=== PATIENT | female | born 1995 | race Caucasian/White ===

== ENCOUNTER 2020-01-13 13:38 | Emergency (ER) | payer BC, MEDICAID, SELFPAY ==
--- NOTE | ~2020-01-13 | XR_ITS ---
EXAMINATION: XR foot RT min 3V DATE: 01/13/2020 14:01 INDICATION: Right foot pain. Injury. TECHNIQUE: 4 views of right foot were obtained. COMPARISON: None. FINDINGS: Bone alignment is normal. No fracture. Joint spaces are well maintained. IMPRESSION: 1. Normal right foot. Reviewed, dictated and finalized at location A. IMPRESSION: 1. Normal right foot.
[2020-01-13 13:50] VITALS: BP 114/77; PULSE 68; RESP 18; TEMP 36.3; O2SAT 100
--- NOTE | 2020-01-13 14:05 | ED.LOWEXIN ---
HPI - Extremity Injury (Lower) General Chief Complaint: Extremity Injury, Lower Stated Complaint: right foot pain Time Seen by Provider: 01/13/20 14:05 Source: patient and RN notes reviewed Mode of arrival: ambulatory Limitations: no limitations History of Present Illness HPI Narrative: 24-year-old female presents with concern for right foot injury. Reports approximately 2 hours ago she hit the lateral edge of her right foot on a kitchen chair. Reports pain, bruising, swelling beneath the fifth digit. Denies any intervention. MD complaint: foot injury Injury: Right: foot Related Data Home Medications Medication Instructions Recorded Confirmed alprazolam 0.25 mg PO DAILY 01/13/20 01/13/20 Allergies Allergy/AdvReac Type Severity Reaction Status Date / Time No Known Allergies Allergy Verified 01/13/20 14:06 Review of Systems Review of Systems: Narrative: CONSTITUTIONAL: Denies malaise, chills, sweats, or fever. SKIN: Bruising, swelling to the right foot MUSCULOSKELETAL: Reports right foot pain. NEUROLOGIC: Denies numbness, weakness All systems reviewed & are unremarkable except as noted in HPI and below PMFSH Social History Social History Gender identity (if verbalized by the patient): Female Comments At time of signature, agree with nursing past medical, surgical, social and family history. There is no relevant family history pertinent to the presenting complaint Exam Narrative: Exam Narrative: GENERAL: Well-appearing, well-nourished, and in no acute distress. HEAD: Normocephalic, atraumatic. EYES: PERRLA, conjunctivae clear NECK: Supple. CHEST: Speaks in full sentences. No respiratory distress. HEART: Regular rate and rhythm. Normal and equal peripheral pulses. EXTREMITIES: Right foot, digits of right foot have has normal strength and sensation, normal range of motion. Mild edema and ecchymosis to the lateral edge of the right foot beneath the fifth digit. 5/5 strength with ankle and digit flexion and extension. Normal sensation with sensitivity to light touch and pain. No open wounds, no skin tenting, no devitalized tissue or atrophy, no trophic changes, no obvious deformity, alignment normal, no point tenderness, nearby joints and structures intact. Distal pulses palpable and equal bilaterally, skin warm, dry, pink. Capillary refill less than 3 seconds. SKIN: Warm, dry, no rash. NEURO: Alert and oriented x3. PSYCH: Normal mood and affect Course Course Emergency Course: Patient is aware of diagnosis, understands and agrees to treatment plan. Anticipatory guidance given. Patient agrees to follow-up as directed and is aware of reasons to seek care at the emergency department. Portions of this record may have been created with voice recognition software Vital Signs Vital signs: Vital Signs Temperature 97.4 F L 01/13/20 13:50 Pulse Rate 68 01/13/20 13:50 Respiratory Rate 18 01/13/20 13:50 Blood Pressure 114/77 01/13/20 13:50 Pulse Oximetry 100 01/13/20 13:50 Temperature 97.4 F L 01/13/20 13:50 Pulse Rate 68 01/13/20 13:50 Respiratory Rate 18 01/13/20 13:50 Blood Pressure 114/77 01/13/20 13:50 Pulse Oximetry 100 01/13/20 13:50 Reviewed. MDM - Extremity Injury (Lower) MDM Narrative Medical decision making narrative: Patients injury and pain is consistent with musculoskeletal etiology. No signs of neurological or vascular compromise on exam. Compartments and tissues are soft without signs of compartment syndrome. Pain is felt appropriate for further evaluation on an outpatient basis. Critical Care Time Critical Care Time Critical Care Time: No Discharge Plan Discharge Clinical Impression: Injury of foot, right Qualifiers: Encounter type: initial encounter Qualified Code(s): S99.921A - Unspecified injury of right foot, initial encounter Patient Disposition: Home, Self-Care Condition: Stable Instructions: Foot Sprain (ED) Additional Instructions: A
== END 2020-01-13 14:14 | disposition home or self-care (01) ==
PROVIDERS: Emergency Provider Nurse Practitioner; PCP Family Medicine
DX: S99.921A Unspecified injury of right foot, initial encounter (principal); W22.8XXA Striking against or struck by other objects, initial encounter; F41.9 Anxiety disorder, unspecified
CPT/HCPCS: 73630; 99213; G0463

== ENCOUNTER 2020-04-25 11:34 | Emergency (ER) | payer BC, MEDICAID, SELFPAY ==
[2020-04-25 11:31] VITALS: BP 138/84; PULSE 60; RESP 18; TEMP 36.4; O2SAT 97
[2020-04-25] MEDS: SODIUM CHLORIDE 0.9% IV 1,000 ML 999 ML IV CONT (11:51)
[2020-04-25] MEDS: FAMOTIDINE 20 MG/2 ML VIAL IV PUSH (11:51)
[2020-04-25] MEDS: diphenhydrAMINE HCl INJ 50 MG/ML VIAL IV PUSH (11:51)
[2020-04-25 12:39] VITALS: BP 121/75; PULSE 50; RESP 18; O2SAT 100
--- NOTE | 2020-04-25 12:40 | ED.GENADULT ---
HPI - General Adult General Chief complaint: Allergic Reaction Stated complaint: ?allergic reaction Time Seen by Provider: 04/25/20 11:41 Source: patient and family Mode of arrival: ambulatory Limitations: no limitations History of Present Illness HPI narrative: Patient is a 25-year-old female who presents to emergency department for evaluation of jaw pain that has been present for the last couple of days patient notes that she was given a shot for anxiety 2 days ago at [facility] developed the symptoms after which patient on arrival to emergency department notes aching pain worse with movement of the jaw patient denies similar occurrence in the past has not taken anything for her symptoms patient denies any recent illness or other complaints and is otherwise resting in the room in mild discomfort upon arrival Related Data Home Medications Medication Instructions Recorded Confirmed escitalopram oxalate [Lexapro] 20 mg PO DAILY 04/25/20 Allergies Allergy/AdvReac Type Severity Reaction Status Date / Time No Known Allergies Allergy Verified 04/25/20 11:36 Review of Systems Review of Systems: All systems reviewed & are unremarkable except as noted in HPI and below PMFSH Past Medical History Medical History (Updated 04/25/20 @ 12:43 by Magdi Diaz PA-C) Bipolar disorder Social History Social History (Updated 04/25/20 @ 12:41 by Magdi Diaz PA-C) Smoking status: Never smoker Gender identity (if verbalized by the patient): Female Exam Narrative: Exam Narrative: Follow up with your primary care provider within 2 days. Go to ER for shortness of breath, difficulty breathing, chest pain, fever/chills, weakness, nauseau/vomitting, etc. or any other concerns. Stay well-hydrated Take any prescribed medications as directed. Follow patient education sheets If you do not have a drug allergy to tylenol or motrin and can tolerate it then take tylenol or motrin as needed for discomfort/pain. Course Course Emergency Course: After receiving Benadryl and Pepcid patient instantly had resolution of symptoms was evaluated emergency department will be discharged home ABCs and vital signs intact and stable patient feels much better with symptoms resolved provided with reasons to return will be discharged home Vital Signs Vital signs: Vital Signs Temperature 97.6 F 04/25/20 11:31 Pulse Rate 60 04/25/20 11:31 Respiratory Rate 18 04/25/20 11:31 Blood Pressure 138/84 04/25/20 11:31 Pulse Oximetry 97 01/23/21 11:31 Temperature 97.6 F 04/25/20 11:31 Pulse Rate 50 L 04/25/20 12:39 Respiratory Rate 18 04/25/20 12:39 Blood Pressure 121/75 04/25/20 12:39 Pulse Oximetry 100 04/25/20 12:39 Medical Decision Making MDM Narrative Medical decision making narrative: Patient had immediate resolution with antihistamines will be discharged home has been evaluated ABCs intact and stable provided with reasons to return Vital Signs Vital Signs: Vital Signs Temperature 97.6 F 04/25/20 11:31 Pulse Rate 60 04/25/20 11:31 Respiratory Rate 18 04/25/20 11:31 Blood Pressure 138/84 04/25/20 11:31 Pulse Oximetry 97 04/25/20 11:31 Temperature 97.6 F 04/25/20 11:31 Pulse Rate 50 L 04/25/20 12:39 Respiratory Rate 18 04/25/20 12:39 Blood Pressure 121/75 04/25/20 12:39 Pulse Oximetry 100 04/25/20 12:39 Discharge Plan Discharge Clinical Impression: Adverse reaction to drug Patient Disposition: Home, Self-Care Condition: Stable Instructions: Antibiotic Form, Adverse Drug Reaction (ED) Additional Instructions: Follow up with your primary care doctor in 5-7 days for re-evaluation. Go to ER for worsening pain, vision changes, nausea/vomiting, fever/chills, weakness, chest pain, shortness of breath, numbness/tingling, slurred speech, difficulty walking, change in mental status etc. or any other concerns. Take any prescribed medications as
== END 2020-04-25 12:52 | disposition home or self-care (01) ==
PROVIDERS: Emergency Provider Family Medicine; PCP Family Medicine
DX: R68.84 Jaw pain (principal); F31.9 Bipolar disorder, unspecified; T50.905A Adverse effect of unspecified drugs, medicaments and biological substances, initial encounter
CPT/HCPCS: 96361; 96374; 96375; 99284; J1200; J7030

== ENCOUNTER 2023-03-21 11:32 | Emergency (ER) | payer SELFPAY ==
[2023-03-21 11:35] VITALS: BP 107/72; PULSE 79; RESP 20; TEMP 36.2; O2SAT 100
--- NOTE | 2023-03-21 12:56 | PC.NURSE ---
Pt ambulatory to Charge desk w/ mother, states I am leaving, this is taking too long. I am miserable. Pt declined exit vitals, did sign AMA paperwork. Pt ambulated out in NAD w/ steady gait. Mother w/ pt.
== END 2023-03-21 12:58 | disposition left against medical advice (07) ==
PROVIDERS: Emergency Provider Emergency Medicine; PCP Family Medicine
DX: F41.9 Anxiety disorder, unspecified (principal)
CPT/HCPCS: 99199